=== PATIENT | male | born 1995 | race Caucasian/White ===

== ENCOUNTER 2018-01-05 01:16 | Emergency (ER) | payer SELFPAY ==
--- NOTE | 2018-01-05 02:53 | PDOC ---
Attending Attestation - Resident Resident Name: Anatoly Chiu - ED Attending Attestation I have performed the following: I have examined & evaluated the patient, The case was reviewed & discussed with the resident, I agree w/resident's findings & plan, Exceptions are as noted - HPI HPI: 01/05/18 20:57 Poncho is a 22 yo M who presents with fever, cough, nausea, and vomiting. The patient reports a 1 week history of intermittent non-productive cough with associated subjective fever. He reports some nausea and several episodes of non-bilious, non-bloody vomiting yesterday No chest pain No SOB No urinary frequency - Physicial Exam PE: 01/05/18 05:08 GENERAL: The patient is in no acute distress. EYES: PERRLA, EOMI ENT: Ears normal, nares patent, oropharynx clear without exudates. Moist mucous membranes. NECK: Normal range of motion, supple, no LAD LUNGS: Breath sounds equal, clear to auscultation bilaterally. No wheezes, and no crackles. HEART:Regular rate and rhythm, normal S1 and S2 without murmur, rub or gallop. ABDOMEN: Soft, nontender EXTREMITIES: Normal range of motion, no edema. NEUROLOGICAL: Cranial nerves II through XII grossly intact. Normal speech. No focal neurological deficits. MUSCULOSKELETAL: Back non-tender to palpation, no CVA tenderness SKIN: Warm, Dry, normal turgor, no rashes or lesions noted. 01/05/18 20:59 - Medical Decision Making Possible viral syndrome 01/05/18 05:08 Laboratory Tests 01/05/18 01/05/18 03:36 03:36 WBC 10.6 H Hgb 15.8 Hct 46.2 Plt Count 243 BUN 12 Creatinine 1.1 01/05/18 05:08 CXR: nml Pt given IVF Symptoms improved Will discharge to home *DC/Admit/Observation/Transfer Diagnosis at time of Disposition: Viral syndrome, Nausea - Discharge Dispostion Disposition: HOME Condition at time of disposition: Stable Decision to Admit order: No - Referrals Referrals: Jacinto Brand MD [Staff Physician] - - Patient Instructions Printed Discharge Instructions: DI for Viral Syndrome, DI for Nausea -- Adult - Post Discharge Activity Forms/Work/School Notes: Back to Work
--- NOTE | 2018-01-05 02:57 | PDOC ---
History of Present Illness - General Stated Complaint: COUGHING,VOMITING Time Seen by Provider: 01/05/18 02:47 - History of Present Illness Initial Comments: 01/05/18 03:11 The patient is a 22 year old male with no significant PMH who presents for evaluation of fever, cough, nausea, and vomiting. The patient reports a 1 week history of intermittent non-productive cough with associated subjective fever. He reports some nausea and several episodes of non-bilious, non-bloody vomiting 1 day ago prompting his presentation to the ED for further evaluation. He otherwise denies SOB, chest pain, abdominal pain, or changes with urination or bowel movements. Past History - Past Medical History Allergies/Adverse Reactions: Allergies Allergy/AdvReac Type Severity Reaction Status Date / Time No Known Allergies Allergy Verified 01/05/18 03:16 Home Medications: Ambulatory Orders NK [No Known Home Medication] 01/05/18 Review of Systems - Review of Systems Comments:: 01/05/18 03:13 Constitutional: Fevers. No chills, fatigue, malaise HEENT: No Rhinorrhea, nasal congestion, visual changes Cardiovascular: No chest pain, syncope, palpitations, lightheadedness Respiratory: Cough. No SOB, Hemoptysis, Gastrointestinal: Nausea, vomiting. No Abdominal pain, Constipation, Diarrhea, Melena Genitourinary: No Dysuria, Frequency, Urgency, Hesitancy, Hematuria, Flank pain Musculoskeletal: No Myalgia, arthralgia Skin: No rashes, itching, bruising, pallor Neurologic: No Headache, Dizziness, Numbness, Weakness, or Tingling Psychiatric: No Hallucinations. No SI or HI *Physical Exam - Physical Exam Comments: 01/05/18 03:13 General Appearance: Nourished. No Apparent Distress HEENT: No Pharyngeal Erythema, Tonsillar Exudate, Tonsillar Erythema Neck: No Cervical Lymphadenopathy Respiratory/Chest: Lungs Clear, Normal Breath Sounds. No Crackles, Rales, Rhonchi, Wheezing Cardiovascular: Regular Rhythm, Regular Rate. No Murmur, Gallops, Rubs Gastrointestinal/Abdominal: Normal Bowel Sounds, Soft. No Guarding, Rebound, Tenderness Musculoskeletal: No CVA Tenderness Extremity: Normal Capillary Refill Integumentary: Normal Color, Dry, Warm Neurologic: Fully Oriented, Alert, Normal Mood/Affect, Normal Response, ED Treatment Course - LABORATORY CBC & Chemistry Diagram: 01/05/18 03:36 01/05/18 03:36 Medical Decision Making - Medical Decision Making 01/05/18 03:14 The patient is a 22 year old male with no significant PMH who presents for evaluation of fever, cough, nausea, and vomiting. Differential includes but is not limited to: Viral syndrome, Gastritis, Pneumonia, infectious, metabolic derangement. Given the patient's history and physical exam, we will obtain a cbc, cmp, ua, chest plain film to evaluate further. We will treat with patient with iv fluids and continue to monitor and reassess while here in the ED. *DC/Admit/Observation/Transfer Diagnosis at time of Disposition: Viral syndrome, Nausea - Discharge Dispostion Disposition: HOME Condition at time of disposition: Stable - Referrals Referrals: Jacinto Brand MD [Staff Physician] - - Patient Instructions Printed Discharge Instructions: DI for Viral Syndrome, DI for Nausea -- Adult - Post Discharge Activity Forms/Work/School Notes: Back to Work
[2018-01-05] MEDS ORDERED: SODIUM CHLORIDE 1,000 ML IV STA (02:59)
[2018-01-05 03:31] VITALS: BP 125/68; PULSE 100; TEMP 99; BMI 30.4
[2018-01-05 03:52] LABS: BASO % 0.5 % (0-2.0); HEMATOCRIT 46.2 % (35.4-49); HEMOGLOBIN 15.8 GM/dL (11.7-16.9); LYMPH % 21.1 % (8-40); MCH 30.4 pg (25.7-33.7); MCHC 34.3 g/dl (32.0-35.9); MEAN CELL VOLUME 88.6 fl (80-96); MEAN PLT VOLUME 9.1 fl (7.5-11.1); MONO % 10.1 % (3.8-10.2); NEUT % 65.3 % (42.8-82.8); PLATELET COUNT 243 K/MM3 (134-434); RBC 5.22 M/mm3 (4.00-5.60); WHITE BLOOD COUNT 10.6 K/mm3 (4.0-10.0)
[2018-01-05 04:15] LABS: ALK PHOS 89 U/L (45-117); ANION GAP 8 MMOL/L (8-16); BILIRUBIN,TOTAL 0.6 mg/dL (0.2-1); BLOOD UREA NITROGEN 12 mg/dL (7-18); CALCIUM 8.8 mg/dL (8.5-10.1); CHLORIDE 105 mmol/L (98-107); CO2 29 mmol/L (21-32); CREATININE 1.1 mg/dL (0.55-1.3); GLUCOSE,RANDOM 93 mg/dL (74-106); POTASSIUM 3.7 mmol/L (3.5-5.1); SGOT/AST 21 U/L (15-37); SGPT/ALT 39 U/L (13-61); SODIUM 141 mmol/L (136-145); TOT PROT 8.2 g/dl (6.4-8.2)
[2018-01-05 05:12] LABS: URINE APPEARANCE CLEAR; URINE BILIRUBIN NEGATIVE (<2.0 mg/dL); URINE COLOR YELLOW; URINE GLUCOSE (UA) NEGATIVE (NEGATIVE); URINE KETONE NEGATIVE (NEGATIVE); URINE LEUK ESTERASE NEGATIVE (NEGATIVE); URINE NITRITE NEGATIVE (NEGATIVE); URINE PROTEIN NEGATIVE (NEGATIVE); URINE UROBILINOGEN 4.0 E.U/dl mg/dL (0.2-1.0)
== END 2018-01-05 06:13 | disposition home or self-care (01) ==
LOC: JER 01:16
PROC: 3E0337Z Introduction of Electrolytic and Water Balance Substance into Peripheral Vein, Percutaneous Approach (ICD-10-PCS; principal; 2018-01-05)
DX: B34.9 Viral infection, unspecified (principal)
CPT/HCPCS: 36415; 71046-TC-FY; 80053; 81003; 85025; 87804; 99282-25; J7030